=== PATIENT | female | born 1970 | race Caucasian/White ===

== ENCOUNTER 2018-02-11 19:30 | Emergency (ER) | payer OTHER ==
[~2018-02-11] VITALS: Ht 172.7 cm; Wt 120.2 kg
[~2018-02-11 19:30] MED LIST: TYLENOL-CODEINE1 TAB PO
== END 2018-02-12 | disposition home or self-care (01) ==
LOC: ER 19:30
DX: R50.9 Fever, unspecified (principal)

== ENCOUNTER → 2018-10-13 | Day surgery (SDC) | payer OTHER ==
[~2018-10-13] MED LIST changes: +AMARYL PO; +FORTAMET1000 MG PO; +PERCOCET 5-3251 EACH PO
== END | disposition home or self-care (01) ==
LOC: ADM 10-02 13:15 → CIR.AMB 07:00
DX: D27.1 Benign neoplasm of left ovary (principal); N83.292 Other ovarian cyst, left side

== ENCOUNTER 2022-08-06 19:14 | Emergency (ER) | payer OTHER ==
[~2022-08-06] VITALS: Ht 175.3 cm; Wt 112.0 kg
[2022-08-06] MEDS ORDERED: HYDROCHLOROTHIA25 MG PO (20:06)
[2022-08-06] MEDS ORDERED: ROSUVASTATIN CA20 MG PO (20:06)
[2022-08-06] MEDS ORDERED: LOSARTAN POTASS50 MG PO (20:06)
== END 2022-08-06 23:46 | disposition home or self-care (01) ==
LOC: ER 19:14
DX: B34.9 Viral infection, unspecified (principal); Z88.1 Allergy status to other antibiotic agents; E11.9 Type 2 diabetes mellitus without complications; Z79.84 Long term (current) use of oral hypoglycemic drugs

== ENCOUNTER 2025-04-22 13:23 | Outpatient (CLI) | payer OTHER ==
[~2025-04-22 13:23] MED LIST changes: +HYDROCHLOROTHIA25 MG PO; +LOSARTAN POTASS50 MG PO; +ROSUVASTATIN CA20 MG PO
== END 2025-04-22 13:27 | disposition home or self-care (01) ==
LOC: SONOGRAMA 13:23
PROVIDERS: ATTEND Pathology Anatomic Pathology & Clinical Pathology
DX: D34 Benign neoplasm of thyroid gland (principal); E07.89 Other specified disorders of thyroid; E04.2 Nontoxic multinodular goiter